=== PATIENT | female | born 1990 | race American Indian/Alaskan Native ===

== ENCOUNTER 2021-01-26 23:53 | Emergency (ER) | payer OTHER ==
[~2021-01-26] VITALS: Ht 160 cm; Wt 52.2 kg
[2021-01-27 00:06] VITALS: BP_SYST 111
--- NOTE | 2021-01-27 00:12 | NUR ---
Patient triaged and placed in waiting room. VSS and patient appears in no acute distress at this time. Accompanied by family, awaiting available bed, and MD notified of need for MSE.
[2021-01-27] MEDS ORDERED: LAM100 PO (00:26)
[2021-01-27] MEDS ORDERED: ARIP5TAB10 PO (00:26)
[2021-01-27] MEDS ORDERED: BUPR450T2 PO (00:27)
--- NOTE | 2021-01-27 01:04 | NUR ---
ER examining patient.
[2021-01-27] MEDS ORDERED: DEXAMETHASONE SOD PHOSPHATE 4 MG/ML VIAL IM ONE (01:15)
[2021-01-27] MEDS ORDERED: KETOROLAC TROMETHAMINE 60 MG/2 ML VIAL IM ONE (01:15)
--- NOTE | 2021-01-27 01:30 | NUR ---
Patient eloped from facility. No further treatment done. ER MD aware
== END 2021-01-27 01:30 | disposition home or self-care (01) ==
LOC: SED 23:53
DX: J02.9 Acute pharyngitis, unspecified (principal); Z79.899 Other long term (current) drug therapy
CPT/HCPCS: 99282; J1100; J1885

== ENCOUNTER 2022-03-26 13:02 | Emergency (ER) | payer OTHER ==
[~2022-03-26] VITALS: Ht 162.6 cm; Wt 64.4 kg
[~2022-03-26 13:02] MED LIST: ARIP5TAB10 PO; BUPR450T2 PO; LAM100 PO
[2022-03-26 13:18] VITALS: BP_SYST 116
[2022-03-26 14:32] VITALS: BP_SYST 116
== END 2022-03-26 14:34 | disposition home or self-care (01) ==
LOC: SED 13:02
DX: J06.9 Acute upper respiratory infection, unspecified (principal); R05.9 Cough, unspecified; J02.9 Acute pharyngitis, unspecified; Z79.899 Other long term (current) drug therapy; Z20.822 Contact with and (suspected) exposure to COVID-19
CPT/HCPCS: 36415; 99283